=== PATIENT | female | born 1955 ===

== ENCOUNTER 2021-11-16 09:34 | Day surgery (SDC) | payer OTHER ==
[~2021-11-16 09:34] MED LIST: ADULT LOW DOSE81 M1 PO; ALDACTONE25 MG PO; ATORVASTATIN CA10 MG PO; CARVEDILOL12.5 MG; COZAAR50 MG PO; HUMULIN 70100 UNIT/2 IJ; LANTUS SOL100 UNIT/1; METFORMIN HCL1000 M2 PO; OMEPRAZOLE20 MG PO
== END 2021-11-16 19:15 | disposition home or self-care (01) ==
LOC: CIR.AMB 09:34
PROVIDERS: ATTEND Colon & Rectal Surgery
DX: K64.8 Other hemorrhoids (principal); Z88.0 Allergy status to penicillin; E78.5 Hyperlipidemia, unspecified; Z95.810 Presence of automatic (implantable) cardiac defibrillator; R47.1 Dysarthria and anarthria; Z87.891 Personal history of nicotine dependence; G43.909 Migraine, unspecified, not intractable, without status migrainosus; M19.90 Unspecified osteoarthritis, unspecified site; E66.01 Morbid (severe) obesity due to excess calories